=== PATIENT | male | born 1980 | race African-American/Black ===

== ENCOUNTER 2022-12-18 02:36 | Emergency (ER) | payer OTHER ==
[~2022-12-18] VITALS: Ht 180.3 cm; Wt 75.7 kg
[2022-12-18] MEDS: ACETAMINOPHEN 500 MG TAB PO ONE (07:31)
[2022-12-18 07:37] VITALS: BP 117/85; TEMP 97.3; O2SAT 99
== END 2022-12-18 07:42 | disposition home or self-care (01) ==
LOC: M ED 02:36
DX: R51.9 Headache, unspecified (principal); F17.290 Nicotine dependence, other tobacco product, uncomplicated